=== PATIENT | female | born 1965 | race American Indian/Alaskan Native ===

== ENCOUNTER 2020-05-24 11:10 | Emergency (ER) | payer SELFPAY ==
[2020-05-24 11:33] VITALS: BP 129/85
--- NOTE | 2020-05-24 11:34 | Emergency Department Report ---
ED Fall HPI - General Chief Complaint: Fall Stated Complaint: FALL Time Seen by Provider: 05/24/20 11:31 Source: patient Mode of arrival: Ambulatory - Related Data Allergies Allergy/AdvReac Type Severity Reaction Status Date / Time No Known Allergies Allergy Unverified 05/24/20 11:16 ED Review of Systems ROS: Stated complaint: FALL Other details as noted in HPI Comment: All other systems reviewed and negative ED Past Medical Hx - Past Medical History Previous Medical History?: Yes Hx Hypertension: Yes - Surgical History Past Surgical History?: No ED Physical Exam - General Limitations: No Limitations General appearance: alert, in no apparent distress - Head Head exam: Present: atraumatic, normocephalic - Eye Eye exam: Present: normal appearance, PERRL, EOMI Pupils: Present: normal accommodation - ENT ENT exam: Present: normal exam, mucous membranes moist - Neck Neck exam: Present: normal inspection, full ROM, other (neg spurlings). Absent: tenderness, meningismus, thyromegaly - Respiratory Respiratory exam: Present: normal lung sounds bilaterally. Absent: respiratory distress, chest wall tenderness, accessory muscle use - Cardiovascular Cardiovascular Exam: Present: regular rate, normal rhythm. Absent: systolic murmur, diastolic murmur, rubs, gallop - GI/Abdominal GI/Abdominal exam: Present: soft, normal bowel sounds. Absent: distended, tenderness, guarding, rebound - Extremities Exam Extremities exam: Present: normal inspection, full ROM, tenderness (mild tenderness to knees. ), normal capillary refill, other. Absent: pedal edema, joint swelling, calf tenderness - Back Exam Back exam: Present: normal inspection, full ROM. Absent: tenderness, muscle spasm, paraspinal tenderness, vertebral tenderness - Neurological Exam Neurological exam: Present: alert, oriented X3, CN II-XII intact, normal gait - Psychiatric Psychiatric exam: Present: normal affect, normal mood - Skin Skin exam: Present: warm, dry, intact, normal color. Absent: rash Critical care attestation.: If time is entered above; I have spent that time in minutes in the direct care of this critically ill patient, excluding procedure time. ED Disposition Clinical Impression: Fall from chair Disposition: DC-01 TO HOME OR SELFCARE Is pt being admited?: No Does the pt Need Aspirin: No Condition: Stable Instructions: Fall Prevention (ED), Musculoskeletal Pain (ED), Ice Pack Application (ED) Referrals: NASIM BAILEY MD [Staff Physician] - 3-5 Days
== END 2020-05-24 11:55 | disposition home or self-care (01) ==
LOC: ED 11:10
DX: M25.561 Pain in right knee (principal); M25.562 Pain in left knee; W17.89XA Other fall from one level to another, initial encounter; Y93.89 Activity, other specified; Y92.89 Other specified places as the place of occurrence of the external cause; Y99.8 Other external cause status
CPT/HCPCS: 99282

== ENCOUNTER 2020-08-09 18:36 | Emergency (ER) | payer BC ==
--- NOTE | 2020-08-09 19:12 | Emergency Department Report ---
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 Saint Alberto just prior to presentation to the emergency department. The patient says that she did not remember any specific time where she was cut or hit by the needle, but noticed the finger abrasion when she was washing her hands after the surgery. The patient was in full sterile gear including double gloves. She has a past medical history of hypertension. ED Past Medical Hx - Past Medical History Hx Hypertension: Yes - Social History Smoking Status: Never Smoker Substance Use Type: None ED Review of Systems ROS: Stated complaint: NEEDLE STICK Other details as noted in HPI Comment: All other systems reviewed and negative Constitutional: denies: chills, fever Skin: other (small right index finger abrasion/laceration) Physical Exam - Physical Exam Physical Exam: GENERAL: The patient is well-developed well-nourished. HENT: Normocephalic. Atraumatic. Patient has moist mucous membranes. EYES: Extraocular motions are intact. NECK: Supple. Trachea is midline. CHEST/LUNGS: Clear to auscultation. There is no respiratory distress noted. HEART/CARDIOVASCULAR: Regular. There is no tachycardia. There is no murmur. SKIN: Skin is warm and dry. There is a small superficial laceration/abrasion to the ulnar side of the index finger. No current bleeding. NEURO: The patient is awake, alert, and oriented. The patient is cooperative.Normal speech. MUSCULOSKELETAL: There is no tenderness or deformity. ED Medical Decision Making - Lab Data Result diagrams: 08/09/20 19:30 08/09/20 19:30 - Medical Decision Making This patient presented with the complaint of a cut to the index finger that she noticed after assisting with a with concern that she was cut by 1 of the surgical instruments. The patient was negative for HIV and hepatitis and had baseline labs that were unremarkable. The source patient will be tested for HIV and hepatitis as well. This patient did not want a wait to find out if the source patient was positive for anything. If the source patient is positive, this patient will be contacted for potential for postexposure prophylaxis. Otherwise the patient will follow up with [facility] on Tuesday. Critical Care Time: No Critical care attestation.: If time is entered above; I have spent that time in minutes in the direct care of this critically ill patient, excluding procedure time. ED Disposition Clinical Impression: Needle stick injury of finger Disposition: - TO HOME OR SELFCARE Is pt being admited?: No Condition: Stable Instructions: Needle Stick Injuries (ED) Additional Instructions: Please follow-up with [facility] on Tuesday. Return to the emergency department immediately with any concerns or with any acute distress. Referrals: DOREEN CRONIN MD [Primary Care Provider] - 2-3 Days [employer] [LAB/CONTRACT] - 08/11/20 Time of Disposition: 20:11
[2020-08-09 19:49] LABS: Basophils % (Auto) 0.2 % (0.0-1.8); Eosinophils # (Auto) 0.1 K/mm3 (0.0-0.4); Eosinophils % (Auto) 1.1 % (0.0-4.3); Hemoglobin 12.9 gm/dl (10.1-14.3); Lymphocytes # (Auto) 2.6 K/mm3 (1.2-5.4); Lymphocytes % (Auto) 40.5 % (13.4-35.0); Mean Corpuscular HGB Conc 33 % (30-34); Mean Corpuscular Volume 94 fl (79-97); Monocytes # (Auto) 0.4 K/mm3 (0.0-0.8); Monocytes % (Auto) 5.7 % (0.0-7.3); Platelet Count 162 K/mm3 (140-440); Red Blood Count 4.15 M/mm3 (3.65-5.03); Red Cell Distribution Width 14.6 % (13.2-15.2)
[2020-08-09 20:05] LABS: Alanine Aminotransferase 18 units/L (7-56); Albumin 4.3 g/dL (3.9-5); Blood Urea Nitrogen 15 mg/dL (7-17); Calcium 9.8 mg/dL (8.4-10.2); Hemolysis Index 14
[2020-08-09 20:11] VITALS: BP 141/81
[2020-08-09 20:11] LABS: Hepatitis B Surface Antigen Non-Reactive (Negative); Hepatitis C Virus Antibody Non-Reactive (NonReactive)
[2020-08-09 20:24] LABS: BUN/Creatinine Ratio 21
== END 2020-08-09 20:30 | disposition home or self-care (01) ==
LOC: ED 18:36
DX: S60.410A Abrasion of right index finger, initial encounter (principal); I10 Essential (primary) hypertension; Z79.899 Other long term (current) drug therapy; W46.0XXA Contact with hypodermic needle, initial encounter; Y93.89 Activity, other specified; Y92.89 Other specified places as the place of occurrence of the external cause; Y99.8 Other external cause status
CPT/HCPCS: 36415; 80053; 80074; 85025; 87806; 99283

== ENCOUNTER 2022-05-20 09:52 | Outpatient (CLI) | payer OTHER ==
--- NOTE | 2022-05-20 14:19 | Magnetic Resonance Report ---
MR lumbar spine wo con INDICATION / CLINICAL INFORMATION: 56 years Female; M54.50 LOW BACK PAIN,UNSPECIFIED. TECHNIQUE: Multisequence, multiplanar images of the lumbar spine were obtained. COMPARISON: None available. FINDINGS: ALIGNMENT: The motion degrades image quality. However, there appears be minimal anterolisthesis at L4 -5 and curvature of the lumbar spine, convex toward the right. VERTEBRAE:There appear to be milder degenerative endplate changes at L4-5 without significant edema o f the lumbar vertebral bodies. VISUALIZED SPINAL CORD: The visualized distal spinal cord appears to demonstrate appropriate signal i ntensity and terminates at L1. [id number] ANALYSIS: L1-2: No significant abnormality. L2-3: No significant abnormality. L3-4: There is no disc protrusion or significant spinal stenosis. There is mild left neural foraminal narrowing. L4-5: The broad-based disc bulge mildly flattens the ventral thecal sac at. The right-sided spondylos is and facet joint hypertrophy result in moderate right foraminal narrowing. Mild narrowing is seen o n the left. L5-S1: There is a slight disc bulge without significant central spinal stenosis. There is right facet joint arthropathy with small effusion. There is associated mild right neural foraminal narrowing. PARASPINAL SOFT TISSUES: No significant abnormality. ADDITIONAL FINDINGS: No epidural collections are identified. There are notable arthritic changes invo lving visualized upper sacroiliac joints, greater on the right. IMPRESSION: 1. There is diffuse a disc bulge and facet joint hypertrophy at L4-5 with moderate right and mild lef t neural foraminal narrowing. 2. There is right facet joint arthropathy with small effusion and mild right foraminal narrowing. Signer Name: Prince Wooten MD Signed: 05/20/2022 2:14 PM Workstation Name: [id number]
== END 2022-05-20 09:53 | disposition home or self-care (01) ==
LOC: MRI 09:52
PROVIDERS: ATTEND Orthopaedic Surgery
DX: M47.816 Spondylosis without myelopathy or radiculopathy, lumbar region (principal); M51.37 Other intervertebral disc degeneration, lumbosacral region; G03.9 Meningitis, unspecified; M48.061 Spinal stenosis, lumbar region without neurogenic claudication
CPT/HCPCS: 72148